=== PATIENT | female | born 1990 | race Caucasian/White ===

== ENCOUNTER 2019-01-29 18:13 | Emergency (ER) | payer OTHER, MEDICAID ==
[~2019-01-29] VITALS: Ht 160 cm; Wt 54.4 kg
[~2019-01-29 18:13] MED LIST: ACETAMINOPHEN-1 EAC1 PO; IBUPROFEN 600600 M1 PO; KEFLEX500 MG PO; NORCO 5-325 TA1 EACH PO
[2019-01-29] MEDS ORDERED: PRENATAL PO (18:22)
[2019-01-29 18:41] LABS: ABSOLUTE BASOPHILS 0.1 thou/uL (0.0-0.2); ABSOLUTE EOSINOPHILS 0.1 thou/uL (0.0-0.7); ABSOLUTE LYMPHOCYTES 2.7 thou/uL (0.8-5.3); ABSOLUTE MONOCYTES 0.6 thou/uL (0.0-1.2); ABSOLUTE NEUTROPHILS 8.3 thou/uL (1.6-8.1); BASOPHILS 1.2 %; EOSINOPHILS 0.9 %; HEMATOCRIT 35.3 % (37.0-47.0); HEMOGLOBIN 12.2 gm/dL (12.0-15.0); LYMPHOCYTES 22.8 %; MCH 30.9 pg (26.0-34.0); MCHC 34.6 g/dL (28.0-37.0); MCV 89.3 fL (80.0-100.0); MPV 8.8 fl. (7.2-11.1); NUCLEATED RBCS 0 /100WBC; PLATELET COUNT* 171 thou/uL (150-400); POLYS 70.1 %; RBC 3.96 mil/uL (4.20-5.00); RDW-CV 13.2 % (10.5-14.5); WBC 11.9 thou/uL (4.0-11.0)
[2019-01-29 18:48] LABS: CALCIUM 8.5 mg/dL (8.5-10.1); CREATININE 0.6 mg/dL (0.6-1.3); POTASSIUM 3.4 mmol/L (3.5-5.1)
[2019-01-29 18:53] LABS: ALBUMIN 3.5 g/dL (3.4-5.0); TOTAL BILIRUBIN 0.2 mg/dL (<0.1-1.0); TOTAL PROTEIN 6.6 g/dL (6.4-8.2)
[2019-01-29 19:08] LABS: URINE BILIRUBIN NEGATIVE (Negative); URINE BLOOD NEGATIVE (Negative); URINE CLARITY CLEAR; URINE COLOR YELLOW; URINE GLUCOSE-RANDOM NEGATIVE (Negative); URINE KETONES NEGATIVE (Negative); URINE LEUKOCYTES-REFLEX NEGATIVE (Negative); URINE NITRITE-REFLEX NEGATIVE (Negative); URINE PROTEIN NEGATIVE (Negative); URINE SPECIFIC GRAVITY <= 1.005 (1.005-1.030); URINE UROBILINOGEN 0.2 E.U./dl (0.2-1.0)
[2019-01-29 20:22] VITALS: BP 112/72
== END 2019-01-29 20:23 | disposition home or self-care (01) ==
LOC: M.ERS 18:13
PROVIDERS: Nurse Practitioner Family
DX: O20.0 Threatened abortion (principal); O20.8 Other hemorrhage in early pregnancy; F17.210 Nicotine dependence, cigarettes, uncomplicated; Z88.0 Allergy status to penicillin; Z3A.10 10 weeks gestation of pregnancy